=== PATIENT | female | born 1985 | race Caucasian/White ===

== ENCOUNTER 2024-04-26 10:25 | Emergency (ER) | payer OTHER, SELFPAY ==
[2024-04-26 10:38] VITALS: BP 162/82; PULSE 97; RESP 18; TEMP 36.8; O2SAT 100
--- NOTE | 2024-04-26 11:05 | ED.GENADULT ---
HPI - General Adult General Chief complaint: Wound/Laceration Stated complaint: Cat Scratch Source: patient Mode of arrival: ambulatory Limitations: no limitations History of Present Illness HPI narrative: Patient presents for evaluation of laceration to the left external ear. She indicates her cat scratched her yesterday. Patient is unsure when her last tetanus shot was. She is not diabetic. Denies any significant pain. No fever, chills, nausea, vomiting, purulence from the affected area. Cat is up-to-date on vaccinations. Related Data Home Medications Medication Instructions Recorded Confirmed amlodipine 5 mg tablet mg 04/26/24 brivaracetam 100 mg tablet mg PO 04/26/24 (Briviact) carvedilol 12.5 mg tablet mg 04/26/24 omeprazole 20 mg capsule,delayed mg 04/26/24 release paroxetine HCl 20 mg tablet mg PO 04/26/24 Allergies Allergy/AdvReac Type Severity Reaction Status Date / Time Penicillins Allergy Unknown Verified 04/26/24 10:39 Review of Systems Review of Systems: CONSTITUTIONAL: Denies fever, chills, or sweats. EYES: Denies visual changes, redness, or discharge. ENT: Denies rhinorrhea, congestion, sore throat, or otalgia. CARDIOVASCULAR: Denies chest pain, palpitations, or edema. RESPIRATORY: Denies cough or dyspnea. GASTROINTESTINAL: Denies abdominal pain, nausea, vomiting, or diarrhea. GENITOURINARY: Denies dysuria or hematuria. SKIN: Reports cat scratch to the left ear MUSCULOSKELETAL: Denies back pain, joint pain, or myalgia. NEUROLOGIC: Denies headache, numbness, dizziness, or weakness. PSYCHIATRIC: Denies anxiety or depression. [facility] Past Medical History Medical History (Updated 04/26/24 @ 11:06 by KOSTAS Towsnend, JAELYN) GERD with apnea Hypertension Surgical History Surgical History History of tubal ligation Family History Family History Mother Family history non-contributory Social History Social History Smoking status: Never smoker Substance use: never Living arrangements: with family Gender identity (if verbalized by the patient): Female Spiritual care concerns: No Exam Narrative: GENERAL: Well-appearing, well-nourished, and in no acute distress. HEAD: Normocephalic EYES: PERRLA and EOMI. ENT: Nares clear, no rhinorrhea or epistaxis. Mucous membranes moist. Oropharynx without tonsillar hypertrophy exudate or other lesions. Bilateral TMs pearly berman nonbulging NECK: Supple. No adenopathy or masses. No carotid bruits or JVD CHEST: Clear to auscultation. No respiratory distress. No wheezes rales or rhonchi HEART: Regular rate and rhythm. No murmur heard. Normal peripheral pulses. ABDOMEN: Soft, nontender, nondistended, normal active bowel sounds. EXTREMITIES: Normal range of motion. No edema. SKIN: There is a 1.6 cm laceration on a flat formation to the anti helix of the left ear. Warm, dry, no rash. NEURO: No focal deficits. Alert and oriented x3. PSYCH: Normal mood and affect. Course Course Emergency Course: This is a 38-year-old female who presented for evaluation of a laceration to the left ear from a cat scratch. Wound was thoroughly cleaned with Betadine and hydrogen peroxide. Wound was thoroughly irrigated. Will discharge her with Cipro and azithromycin. She was updated on tetanus. She is advised to monitor her left ear closely. For any redness or swelling/discharge, she should take her airing is out and go immediately to the emergency department. I will have her follow up with ENT. Patient in agreement with plan of care. Level of Care: Express Care Visit Vital Signs Vital signs: Vital Signs Temperature 36.8 C 04/26/24 10:38 Pulse Rate 97 04/26/24 10:38 Respiratory Rate 18 04/26/24 10:38 Blood Pressure 162/82 H 04/26/24 10:38
[2024-04-26] MEDS: TETANUS,DIPHTHERIA,AC PERTUSSIS ADULT (0.5 ML) BOOSTRIX IM (11:07)
== END 2024-04-26 11:15 | disposition home or self-care (01) ==
PROVIDERS: Emergency Provider Nurse Practitioner; PCP Family Medicine
DX: S01.312A Laceration without foreign body of left ear, initial encounter (principal); W55.03XA Scratched by cat, initial encounter; Z23 Encounter for immunization; K21.9 Gastro-esophageal reflux disease without esophagitis; I10 Essential (primary) hypertension
CPT/HCPCS: 90471; 90715; 99203; G0463

== ENCOUNTER 2024-08-19 10:04 | Emergency (ER) | payer OTHER, SELFPAY ==
[2024-08-19 10:11] VITALS: BP 134/90; PULSE 69; RESP 14; TEMP 36.4; O2SAT 100
--- NOTE | 2024-08-19 10:14 | ED_ITS ---
HPI - URI/Sore Throat General Chief Complaint: Upper Respiratory Infection Stated Complaint: Ear Pain/Sore Throat/Headache Time Seen by Provider: 08/19/24 10:21 History of Present Illness HPI Narrative: 38-year-old female presented for complaint of cough, nasal congestion, sore throat and ear pain. Onset last night. Has not taken anything for symptoms. States I coughed up green sputum. denies shortness of breath, wheezing, nausea vomiting, diarrhea or fever. Related Data Home Medications ?Medication ?Instructions ?Recorded ?Confirmed ?Last Taken ?Type amlodipine 5 mg tablet mg 04/26/24 Unknown History brivaracetam 100 mg tablet mg PO 04/26/24 Unknown History (Briviact) carvedilol 12.5 mg tablet mg 04/26/24 Unknown History paroxetine HCl 20 mg tablet mg PO 04/26/24 Unknown History Allergies Allergy/AdvReac Type Severity Reaction Status Date / Time Penicillins Allergy Intermediate Swelling Verified 08/19/24 10:44 Review of Systems Review of Systems: ROS per HPI [facility] Past Medical History Medical History Seizure GERD with apnea Hypertension Surgical History Surgical History Hx of brain surgery History of tubal ligation Family History Family History Mother Family history non-contributory Social History Social History Smoking status: Never smoker Substance use: never Living arrangements: with family Gender identity (if verbalized by the patient): Female Spiritual care concerns: No Exam Narrative: GENERAL: well-appearing, no acute distress. EYES: conjunctivae clear ENT: Mucous membranes moist. TM pearly berman with normal light reflex bilaterally; no tragal tenderness. Oropharynx mildly erythematous without lesions. Tonsils enlarged 1+ and without exudate. No drooling, no hoarseness, no trismus, uvula midline. No tripod positioning, hot potato voice, or soft palate swelling. NECK: Supple. No lymphadenopathy CHEST: Clear to auscultation, breath sounds equal. No respiratory distress, speaks in full sentences. HEART: Regular rate and rhythm. No murmur heard. SKIN: Warm, dry, no rash. NEURO: Alert and oriented x3. Course Course Emergency Course: Patient is aware of diagnosis, understands and agrees to treatment plan. Anticipatory guidance given. Patient agrees to follow-up as directed and is aware of reasons to seek care at the emergency department. Portions of this record may have been created with voice recognition software Level of Care: Express Care Visit Vital Signs Vital signs: Vital Signs Temperature 97.5 F L 08/19/24 10:11 Pulse Rate 69 08/19/24 10:11 Respiratory Rate 14 08/19/24 10:11 Blood Pressure 134/90 08/19/24 10:11 Pulse Oximetry 100 08/19/24 10:11 Temperature 97.5 F L 08/19/24 10:11 Pulse Rate 69 08/19/24 10:11 Respiratory Rate 14 08/19/24 10:11 Blood Pressure 134/90 08/19/24 10:11 Pulse Oximetry 100 08/19/24 10:11 MDM - URI/Sore Throat MDM Narrative Medical decision making narrative: flu, covid and strep result reviewed with pt. Advise supportive treatments. Patient is appropriate for outpatient treatment and follow-up. Differential Diagnosis Differential diagnosis: Likely upper respiratory infection, viral infection and pharyngitis Lab Data Labs: Lab Results 08/19/24 Range/Units 11:09 POC Influenza A Ag Negative (Negative) POC Influenza B Ag Negative (Negative) POC SARS CoV-2 Ag Pending POC Grp A Strep Screen Negative (Negative) Discharge Plan Discharge Clinical Impression: Upper respiratory infection Qualifiers: URI type: unspecified URI Qualified Code(s): J06.9 - Acute upper respiratory infection, unspecified Patient Disposition: Home, Self-Care Condition: Stable Instructions: Antibiotic Form, Upper Respiratory Infection (ED) Additional Instructions: Flu and COVID negative. Rapid strep swab was negative today You will be notified in a few days if the culture comes back positive for strep, and appropriate antibiotics will be called in at that time. if symptoms are due to a viral illness, it is not treated with antibiotics. Viral symptoms can be present for up to 10-14 days. Recommend Flonase spray and Zyrtec for sinus congestion Cough syrup may cause drowsiness; avoid driving or take it at night time. Tylenol every 8 hours as needed for pain/fever Soft foods, cool liquids, warm tea. Gargle with warm saltwater twice a day. Chloraseptic spray and throat lozenges. Rest and stay hydrated. --Follow up with your PCP --Go to the ER immediately if you cannot swallow your saliva, trouble breathing/wheezing, throat swelling, pain is persistent and severe Patient Language: Bengali Prescriptions: No Action carvedilol 12.5 mg tablet amlodipine 5 mg tablet paroxetine HCl 20 mg tablet PO Briviact 100 mg tablet PO ciprofloxacin HCl [Cipro] 500 mg tablet 500 mg PO Q12H Qty: 20 0RF Follow-up/Referrals: DAVID,MD ROMAN [Primary Care Provider] - Time of Disposition: 11:13
[2024-08-19 11:12] LABS: EDINFLUASCREEN Negative (Negative); EDINFLUBSCREEN Negative (Negative); EDSTREPNEGPOS1 Negative (Negative)
[2024-08-19 14:03] LABS: EDCOVIDSCREEN Yes (Negative)
== END 2024-08-19 11:18 | disposition home or self-care (01) ==
PROVIDERS: Emergency Provider Nurse Practitioner Family; PCP Family Medicine
DX: J06.9 Acute upper respiratory infection, unspecified (principal); Z20.822 Contact with and (suspected) exposure to COVID-19; I10 Essential (primary) hypertension; K21.9 Gastro-esophageal reflux disease without esophagitis
CPT/HCPCS: 87081; 87426; 87804; 87880; 99213; G0463